=== PATIENT | male | born 1960 | race Caucasian/White ===

== ENCOUNTER 2021-02-08 13:10 | Emergency (ER) | payer OTHER, SELFPAY ==
--- NOTE | 2021-02-08 | ECG_ITS ---
Test Reason : DIZZINESS Blood Pressure : / mmHG Vent. Rate : 085 BPM Atrial Rate : 085 BPM P-R Int : 200 ms QRS Dur : 138 ms QT Int : 404 ms P-R-T Axes : 036 -75 005 degrees QTc Int : 480 ms Normal sinus rhythm Left anterior fascicular block Right bundle branch block Inferior infarct (cited on or before 03-JAN-2010) Anterolateral infarct (cited on or before 15-MAY-2018) Abnormal ECG When compared with ECG of 06-NOV-2019 15:34, No significant changes seen Referred By: Generic ED Physician Electronically Signed By:LAM TOVAR MD
--- NOTE | ~2021-02-08 | CT_ITS ---
EXAMINATION: CT ANGIOGRAM NECK WITH CONTRAST CT ANGIOGRAM BRAIN WITH CONTRAST CLINICAL INFORMATION: Headache. Hears swishing with movement. COMPARISON: Head CT 05/10/2007. TECHNIQUE: Test bolus sequences followed by intravenous administration 100 mL of Omnipaque 350. Helical imaging was performed in the axial plane from the thoracic inlet to the skull vertex. Delayed postcontrast imaging of the head was also performed. The data was processed at the staff technologist workstation for generation of MIP sequences. Angled MIPs and volume rendered reformatted images were also generated at an offline 3D workstation. Stenoses are assessed in accordance with NASCET criteria unless otherwise indicated. This CT examination was performed using dose optimization techniques as appropriate, variously including the following: *Automated exposure control *Adjustment of mA and/or kV according to patient size (this includes techniques or standardized protocols for targeted exams where dose is matched to indication/reason for exam; i.e. extremities or head) *Use of iterative reconstruction technique DLP: 2600 mGy-cm FINDINGS: Head CT: There is no intracranial hemorrhage, large acute infarction, or mass lesion. The ventricles are normal in size and configuration without evidence of hydrocephalus. No abnormal enhancement is seen. There is mild paranasal sinus mucosal thickening. Bilateral mastoids and middle ear cavities are clear. No vascular mass identified. No evidence of carotid or jugular dehiscence. Neck CTA: The aortic arch and great vessels are patent. There is direct origin of the left vertebral artery. The bilateral common and internal carotid arteries are patent. No carotid bifurcation stenosis is seen. Both vertebral arteries are patent with the right side being mildly dominant. Head CTA: The intradural vertebral arteries and basilar artery are patent. The mat inspector are patent. Intracranial ICAs, ACAs, and MCAs are patent. No aneurysm is seen. No vascular malformation is seen. The dural venous sinuses appear normally opacified. No abnormal enhancement is seen within the orbits. Non-vascular findings: The cervical soft tissues appear normal. Significant emphysema is noted in the upper lungs. Multilevel degenerative changes are seen within the spine. CT/CT angio head neck IMPRESSION: CT head: No intracranial hemorrhage or large acute infarction. No abnormal enhancement identified. No evidence of vascular malformation. CTA neck: No stenosis in the major arteries of the neck. CTA head: No large vessel occlusion or significant stenosis within the intracranial circulation.
[2021-02-08 13:25] VITALS: BP 133/94; PULSE 97; RESP 18; TEMP 36.8; O2SAT 95; BMI 29.5
[2021-02-08 14:28] VITALS: PULSE 80; RESP 5; TEMP 36.7
[2021-02-08 14:29] VITALS: BP 145/95; O2SAT 96
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
[2021-02-08 15:12] LABS: MANUAL DIFF FLAG NO
[2021-02-08 15:13] VITALS: BP 135/82; PULSE 83; RESP 14; TEMP 36.7; O2SAT 95
[2021-02-08 15:14] LABS: Basophils Absolute Auto 0.1 X10*3/uL (0.0-0.2); Eosinophils Absolute Auto 0.2 X10*3/uL (0.0-0.4); Eosinophils Percent Auto 2.5 % (0-4); Hematocrit 48.3 % (42.0-52.0); Hemoglobin 16.4 g/dl (14.0-18.0); Imm Gran Abs Auto 0.01 X10*3/uL (0.00-0.03); Imm Gran Pct Auto 0.2 % (0.0-0.4); Lymphocytes Absolute Auto 1.5 X10*3/uL (1.2-4.9); Lymphocytes Percent Auto 24.8 % (20-40); Mean Corpuscular Hemoglobin 30.7 pg (27.0-33.0); Mean Corpuscular Volume 90.4 fL (80.0-98.0); Mean Platelet Volume 9.3 fL (9.4-12.4); Monocytes Absolute Auto 0.5 X10*3/uL (0.1-1.2); Monocytes Percent Auto 8.1 % (2-11); Neutrophils Absolute Auto 3.8 x10*3/uL (2.0-8.3); Neutrophils Percent Auto 63.4 % (45-73); Platelet Count 187 X10*3/uL (160-400); Red Blood Count 5.34 X10*6/uL (4.60-5.80); Red Cell Distribution Width 13.3 % (11.0-16.0); White Blood Count 5.9 X10*3/uL (4.8-10.8)
[2021-02-08] MEDS: Ketorolac Tromethamine 15 MG/ML VIAL IVPUSH (15:15)
[2021-02-08] MEDS: Prochlorperazine Edisylate 10 MG/2 ML VIAL IVPUSH (15:16)
[2021-02-08 15:30] LABS: Alanine Aminotransferase 27 U/L (0-40); Albumin Level 4.1 g/dL (3.5-5.0); Alkaline Phosphatase 85 U/L (39-117); Anion Gap 14 (12-20); Aspartate Amino Transferase 22 U/L (5-37); Bilirubin Total 0.6 mg/dL (0.0-1.0); Blood Urea Nitrogen 15 mg/dL (9-16); Calcium 8.8 mg/dL (8.4-10.2); Carbon Dioxide 27 mmol/L (22-29); Chloride 102 mmol/L (96-108); Creatinine Clr Calc Pharmacy 92.3; Estimated Glomerular Filt Rate > 60; Glucose Random 89 mg/dL (60-115); Potassium 3.9 mmol/L (3.3-5.1); Sodium 139 mmol/L (135-145); Total Protein 6.5 g/dL (6.5-8.0)
== END 2021-02-08 16:57 | disposition home or self-care (01) ==
PROVIDERS: Emergency Provider Emergency Medicine; PCP Internal Medicine
DX: R51.9 Headache, unspecified (principal); J44.9 Chronic obstructive pulmonary disease, unspecified
CPT/HCPCS: 36415; 70496; 70498; 80053; 85025; 93005; 96374; 96375; 99284; 99285; J1885

== ENCOUNTER → 2021-08-28 14:49 | Outpatient (BNVA) | payer OTHER, SELFPAY | PROVIDERS: PCP Internal Medicine; Visit Provider Urology | DX: R39.14 Feeling of incomplete bladder emptying (principal); N32.0 Bladder-neck obstruction; N20.0 Calculus of kidney | CPT/HCPCS: 99212 ==

== ENCOUNTER 2023-08-06 11:18 | Outpatient (AMB) | payer OTHER, SELFPAY ==
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
[2023-08-06 12:02] VITALS: BP 118/80; PULSE 93; RESP 16; TEMP 36.9; O2SAT 94; BMI 32.1
== END 2023-08-06 12:47 | disposition home or self-care (01) ==
PROVIDERS: PCP Internal Medicine; Visit Provider Internal Medicine
DX: J44.9 Chronic obstructive pulmonary disease, unspecified (principal); M19.90 Unspecified osteoarthritis, unspecified site; F33.41 Major depressive disorder, recurrent, in partial remission
CPT/HCPCS: 99214; G2211

== ENCOUNTER 2023-10-02 14:05 | Outpatient (AMB) | payer OTHER, SELFPAY ==
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
== END 2023-10-02 14:50 | disposition home or self-care (01) ==
PROVIDERS: PCP Internal Medicine; Visit Provider Urology
DX: R39.14 Feeling of incomplete bladder emptying (principal); N32.0 Bladder-neck obstruction; N20.0 Calculus of kidney
CPT/HCPCS: 99214

== ENCOUNTER → 2023-10-02 14:05 | Outpatient (BNVA) | payer OTHER, SELFPAY | PROVIDERS: PCP Internal Medicine; Visit Provider Urology | DX: N20.0 Calculus of kidney (principal); R39.14 Feeling of incomplete bladder emptying; N32.0 Bladder-neck obstruction | CPT/HCPCS: 51798; 99212 ==

== ENCOUNTER 2023-10-12 13:53 | Outpatient (REF) | payer OTHER, SELFPAY ==
--- NOTE | ~2023-10-12 | US_ITS ---
EXAMINATION: US RETROPERITONEAL LIMITED (RENAL ONLY) CLINICAL INFORMATION: Calculus of kidney. COMPARISON: CT abdomen and pelvis 04/05/2019. Renal ultrasound 02/22/2019. Ultrasound abdomen complete 06/24/2018. X-ray KUB 09/26/2015 and 08/01/2015. TECHNIQUE: Real-time imaging of the kidneys. FINDINGS: RIGHT KIDNEY: 12.7 x 5.1 x 5.5 cm (SAG x AP x TRV). The kidney is normal in size, contour, and echogenicity. Renal cortical thickness is normal. No calculi or focal parenchymal lesions. No hydronephrosis. LEFT KIDNEY: 11.9 x 5.5 x 4.4 cm (SAG x AP x TRV). The kidney is normal in size, contour, and echogenicity. Renal cortical thickness is normal. No focal parenchymal lesions or hydronephrosis. At the interpolar aspect, a 3 mm nonobstructing calculus is seen. At the lower pole, a 5 mm nonobstructing calculus is seen. There is scant perinephric fluid. US/US renal BI IMPRESSION: There are nonobstructing left renal calculi. No right renal calculus is seen. No hydronephrosis is noted bilaterally.
== END 2023-10-12 13:54 | disposition home or self-care (01) ==
LOC: HO.US 13:53
PROVIDERS: PCP Internal Medicine; Visit Provider Urology
DX: N20.0 Calculus of kidney (principal)
CPT/HCPCS: 76775

== ENCOUNTER 2023-11-02 11:17 | Outpatient (AMB) | payer OTHER, SELFPAY ==
[2023-11-02 11:33] VITALS: BP 120/70; PULSE 66
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
== END 2023-11-02 12:11 | disposition home or self-care (01) ==
PROVIDERS: PCP Internal Medicine; Visit Provider Internal Medicine
DX: G89.4 Chronic pain syndrome (principal); M51.36 Other intervertebral disc degeneration, lumbar region; M81.0 Age-related osteoporosis without current pathological fracture; N40.1 Benign prostatic hyperplasia with lower urinary tract symptoms
CPT/HCPCS: 99214

== ENCOUNTER 2023-12-02 14:03 | Outpatient (AMB) | payer OTHER, SELFPAY ==
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
== END 2023-12-02 15:00 | disposition home or self-care (01) ==
PROVIDERS: PCP Internal Medicine; Visit Provider Urology
DX: N20.0 Calculus of kidney (principal); N32.0 Bladder-neck obstruction; R39.14 Feeling of incomplete bladder emptying; Z13.9 Encounter for screening, unspecified
CPT/HCPCS: 52000

== ENCOUNTER → 2023-12-02 14:03 | Outpatient (BNVA) | payer OTHER, SELFPAY | PROVIDERS: PCP Internal Medicine; Visit Provider Urology | DX: R39.14 Feeling of incomplete bladder emptying (principal); N32.0 Bladder-neck obstruction; N20.0 Calculus of kidney | CPT/HCPCS: 52000; 81003 ==

== ENCOUNTER 2024-02-15 14:02 | Outpatient (AMB) | payer OTHER, SELFPAY ==
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
[2024-02-15 14:30] VITALS: BP 114/80; PULSE 104; O2SAT 93; BMI 30.6
== END 2024-02-15 15:05 | disposition home or self-care (01) ==
PROVIDERS: PCP Internal Medicine; Visit Provider Internal Medicine
DX: M19.90 Unspecified osteoarthritis, unspecified site (principal); J44.9 Chronic obstructive pulmonary disease, unspecified; F33.41 Major depressive disorder, recurrent, in partial remission

== ENCOUNTER → 2024-02-15 14:02 | Outpatient (BNVA) | payer OTHER, SELFPAY | PROVIDERS: PCP Internal Medicine; Visit Provider Internal Medicine | DX: M19.90 Unspecified osteoarthritis, unspecified site (principal); J44.9 Chronic obstructive pulmonary disease, unspecified; F33.41 Major depressive disorder, recurrent, in partial remission; F41.9 Anxiety disorder, unspecified; G89.29 Other chronic pain; R41.3 Other amnesia; M81.0 Age-related osteoporosis without current pathological fracture | CPT/HCPCS: 96127; 99212 ==

== ENCOUNTER 2024-02-15 15:16 | Outpatient (REF) | payer OTHER, SELFPAY ==
[2024-02-15 17:23] LABS: MANUAL DIFF FLAG NO
[2024-02-15 17:35] LABS: Basophils Absolute Auto 0.1 X10*3/uL (0.0-0.2); Basophils Percent Auto 1.4 % (0-2); Eosinophils Absolute Auto 0.3 X10*3/uL (0.0-0.4); Eosinophils Percent Auto 4.7 % (0-4); Hematocrit 51.4 % (42.0-52.0); Hemoglobin 17.5 g/dl (14.0-18.0); Imm Gran Abs Auto 0.01 X10*3/uL (0.00-0.03); Imm Gran Pct Auto 0.2 % (0.0-0.4); Lymphocytes Absolute Auto 1.7 X10*3/uL (1.2-4.9); Lymphocytes Percent Auto 25.9 % (20-40); Mean Corpuscular Hemoglobin 30.5 pg (27.0-33.0); Mean Corpuscular Volume 89.7 fL (80.0-98.0); Monocytes Absolute Auto 0.5 X10*3/uL (0.1-1.2); Monocytes Percent Auto 8.2 % (2-11); Neutrophils Absolute Auto 3.9 x10*3/uL (2.0-8.3); Neutrophils Percent Auto 59.6 % (45-73); Platelet Count 207 X10*3/uL (160-400); Red Blood Count 5.73 X10*6/uL (4.60-5.80); Red Cell Distribution Width 13.1 % (11.0-16.0); White Blood Count 6.6 X10*3/uL (4.8-10.8)
[2024-02-15 17:54] LABS: Alanine Aminotransferase 25 U/L (0-40); Albumin Level 4.5 g/dL (3.5-5.0); Alkaline Phosphatase 84 U/L (39-117); Anion Gap 11 (12-20); Aspartate Amino Transferase 26 U/L (5-37); Bilirubin Total 0.6 mg/dL (0.0-1.0); Blood Urea Nitrogen 15 mg/dL (9-16); Calcium 9.7 mg/dL (8.4-10.2); Carbon Dioxide 30 mmol/L (22-29); Chloride 104 mmol/L (96-108); Estimated Glomerular Filt Rate > 60; Glucose Random 94 mg/dL (60-115); Sodium 141 mmol/L (135-145); Total Protein 7.3 g/dL (6.5-8.0)
[2024-02-15 18:04] LABS: TSH reflex Free T4 2.56 uIU/mL (0.32-4.0)
[2024-02-15 18:16] LABS: Folate 14.1 ng/mL (> or = 4.0); Vitamin B12 473 pg/mL (200-900)
[2024-02-16 08:54] LABS: Lyme Abs Screen <0.90 index
== END 2024-02-15 15:17 | disposition home or self-care (01) ==
LOC: HO.WFDLDS 15:16
PROVIDERS: Visit Provider Internal Medicine
DX: R41.3 Other amnesia (principal)
CPT/HCPCS: 36415; 80053; 82607; 82746; 84443; 85025; 86617; 86618

== ENCOUNTER 2024-06-13 15:25 | Outpatient (AMB) | payer OTHER, SELFPAY ==
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
== END 2024-06-13 15:33 | disposition home or self-care (01) ==
LOC: HO.HMCFM 15:25
PROVIDERS: PCP Internal Medicine; Visit Provider Internal Medicine
DX: F33.41 Major depressive disorder, recurrent, in partial remission (principal); M48.00 Spinal stenosis, site unspecified

== ENCOUNTER 2024-08-29 14:22 | Outpatient (AMB) | payer OTHER, SELFPAY ==
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
[2024-08-29 14:34] VITALS: BP 102/62; PULSE 102; TEMP 36.2; O2SAT 94; BMI 29.0
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
== END 2024-08-29 15:17 | disposition home or self-care (01) ==
LOC: HO.HMCFM 14:23
PROVIDERS: PCP Internal Medicine; Visit Provider Physician Assistant Medical
DX: M79.671 Pain in right foot (principal); M79.672 Pain in left foot; Z13.6 Encounter for screening for cardiovascular disorders; Z00.00 Encounter for general adult medical examination without abnormal findings; F41.8 Other specified anxiety disorders; M54.9 Dorsalgia, unspecified; G89.29 Other chronic pain

== ENCOUNTER → 2024-08-29 14:22 | Outpatient (BNVA) | payer OTHER, SELFPAY | PROVIDERS: PCP Internal Medicine; Visit Provider Physician Assistant Medical | DX: Z00.00 Encounter for general adult medical examination without abnormal findings (principal); G89.29 Other chronic pain; N40.0 Benign prostatic hyperplasia without lower urinary tract symptoms; M48.00 Spinal stenosis, site unspecified; M19.90 Unspecified osteoarthritis, unspecified site; M79.671 Pain in right foot; M79.672 Pain in left foot; M54.9 Dorsalgia, unspecified; F41.8 Other specified anxiety disorders; E78.5 Hyperlipidemia, unspecified | CPT/HCPCS: 96127 ==

== ENCOUNTER 2024-10-10 13:04 | Outpatient (REF) | payer OTHER, SELFPAY ==
--- NOTE | ~2024-10-10 | XR_ITS ---
EXAMINATION: XR FOOT 3 OR MORE VIEWS BILATERAL HISTORY: M79.671 - Pain in right foot COMPARISON: There are no prior studies available for comparison. FINDINGS: Six views of the bilateral feet are submitted. Osseous mineralization is normal. There is no fracture or dislocation. On the right, there is mild degenerative change of the 1st MTP joint with joint space narrowing and subchondral cyst formation. The remaining joint spaces are maintained. The soft tissues are unremarkable. XR/XR Foot Daneil 3V IMPRESSION: Mild degenerative change of the 1st MTP joint of the right foot. Electronically signed by: Samir Montalvo MD 10/10/2024 01:23 PM EDT
--- OUTSIDE RECORDS SUMMARY | 2024-10-10 14:04 | XMS_ITS | Clinical Summary ---
Author Organization [facility] Address [address] [place] [address] Care Team Providers Care Aircraft Engine Dismantler Name Role Phone Kenya Shine MD Primary Care Provider [phone] Surgical History Surgery Date Site/Laterality Comments COLONOSCOPY 02/26/11 PROCEDURE: HISTORICAL COLONOSCOPY; COMMENT: tics; repeat in ten yrs CYSTOSCOPY PROCEDURE: [place] CYSTOURETHROSCOPY; COMMENT: Kidney stone Medical History Medical [...] Relation Name Comments Coronary artery disease Father richard west angina at age 60 Relation Name [...] COVID-19 Vaccine ( season) 2023 Influenza Vaccine (#1) 2024 9, 12/22/2017, 11/26/2017, Additional history exists HIB Vaccines [...] PM EDT Narrative 12/12/2021 5:51 PM EDT [facility] Diagnostic Imaging Department [address] [place] [address] Patient: ADAM BAJWA./Age/Sex: 1960 - 61 - M Unit#: [id number] Location/Status: SPDICAS/REG CLI Mnemonic/Ordering Site: [facility] Ordering Physician: ARTUR TORRES MD CT [...] Category 2: Recommend LDCT in 12 months. 04449/G0297 G9637 G9557 G9551 Dictating Physician: DANNY MORRISON MD Electronically Signed by: DANNY MORRISON MD Dic Date/Time: 12/12/211746 Sign date/Time: 12/12/211750 Procedure Note Danny Morrison MD - 03/19/2022 [facility] Diagnostic Imaging Department [address] [place] [address] Patient: ADAM BAJWA/Age/Sex: 1960 - 61 - M Unit#: [id number] Location/Status: SPDICATLS/REG CLI Mnemonic/Ordering Site: [facility] Ordering Physician: ARTUR TORRES MD CT Lung Screening Low Dose - 12/12/21 - 1654 History: 45 pack-year smoker screening for lung malignancy. Comparison: 12/10/2020 Findings: Noncontrast low dose chest CT (LDCT) was performed per lungcancer CT screening protocol on a [employer] multidetector scanner. The CT scanner utilizedlow- dose [...] Category 2: Recommend LDCT in 12 months. 16663/G0297 G9637 G9557 G9551 Dictating Physician: DANNY MORRISON MD Electronically Signed by: DANNY MORRISON MD Dic Date/Time: 12/12/211746 Sign date/Time: 12/12/211750 Artur Torres MD IMG CT PROCEDURES Final Result from Last 3 Months or Most Recently Relevant to Health Maintenance Care Teams Aircraft Engine Dismantler Relationship Specialty Start Date End Date Kenya Shine MD PCP - General 02/20/15
== END 2024-10-10 13:05 | disposition home or self-care (01) ==
LOC: HO.XRAY 13:04
PROVIDERS: PCP Internal Medicine; Visit Provider Physician Assistant Medical
DX: M79.671 Pain in right foot (principal); M79.672 Pain in left foot
CPT/HCPCS: 73630

== ENCOUNTER → 2024-10-10 13:06 | Outpatient (BNV) | payer OTHER, SELFPAY | PROVIDERS: PCP Internal Medicine; Visit Provider Radiology Diagnostic Radiology | DX: M19.071 Primary osteoarthritis, right ankle and foot (principal) | CPT/HCPCS: 73630 ==

== ENCOUNTER 2024-10-11 16:13 | Outpatient (AMB) | payer OTHER, SELFPAY ==
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
[2024-10-11 16:26] VITALS: BP 112/70; PULSE 93; RESP 14; O2SAT 92; BMI 28.7
--- OUTSIDE RECORDS SUMMARY | 2024-10-11 16:45 | XMS_ITS | Clinical Summary ---
Author Organization [facility] Address [address] [place] [address] Care Team Providers Care Stick Inserter Name Role Phone Kenya Shine MD Primary Care Provider [phone] Surgical History Surgery Date Site/Laterality Comments COLONOSCOPY 02/26/11 PROCEDURE: HISTORICAL COLONOSCOPY; COMMENT: tics; repeat in ten yrs CYSTOSCOPY PROCEDURE: [place] CYSTOURETHROSCOPY; COMMENT: Kidney stone Medical History Medical [...] PM EDT Narrative 12/12/2021 5:51 PM EDT [facility] Diagnostic Imaging Department [address] [place] [address] Patient: ADAM BAJWA./Age/Sex: 1960 - 61 - M Unit#: [id number] Location/Status: SPDICAS/REG CLI Mnemonic/Ordering Site: [facility] Ordering Physician: ARTUR TORRES MD CT Lung [...] Category 2: Recommend LDCT in 12 months. 82388/G0297 G9637 G9557 G9551 Dictating Physician: DANNY MORRISON MD Electronically Signed by: DANNY MORRISON MD Dic Date/Time: 12/12/211746 Sign date/Time: 12/12/211750 Procedure Note Danny Morrison MD - 03/19/2022 [facility] Diagnostic Imaging Department [address] [place] [address] Patient: ADAM BAJWA/Age/Sex: 1960 - 61 - M Unit#: [id number] Location/Status: SPDICATLS/REG CLI Mnemonic/Ordering Site: [facility] Ordering Physician: ARTUR TORRES MD CT Lung Screening Low Dose - 12/12/21 - 1654 History: 45 pack-year smoker screening for lung malignancy. Comparison: 12/10/2020 Findings: Noncontrast low dose chest CT (LDCT) was performed per lungcancer CT screening protocol on a [employer] multidetector scanner. The CT scanner utilizedlow- dose [...] Category 2: Recommend LDCT in 12 months. 00360/G0297 G9637 G9557 G9551 Dictating Physician: DANNY MORRIOSN MD Electronically Signed by: DANNY MORRISON MD Dic Date/Time: 12/12/211746 Sign date/Time: 12/12/211750 Artur Torres MD IMG CT PROCEDURES Final Result from Last 3 Months or Most Recently Relevant to Health Maintenance Care Teams Stick Inserter Relationship Specialty Start Date End Date Kenya Shine MD PCP - General 02/20/15
== END 2024-10-11 16:52 | disposition home or self-care (01) ==
LOC: HO.HMCFM 16:14
PROVIDERS: PCP Internal Medicine; Visit Provider Internal Medicine
DX: J44.9 Chronic obstructive pulmonary disease, unspecified (principal); F33.41 Major depressive disorder, recurrent, in partial remission; M54.42 Lumbago with sciatica, left side; M54.41 Lumbago with sciatica, right side; G89.29 Other chronic pain

== ENCOUNTER → 2024-10-11 16:13 | Outpatient (BNVA) | payer OTHER, SELFPAY | PROVIDERS: PCP Internal Medicine; Visit Provider Internal Medicine | DX: F33.41 Major depressive disorder, recurrent, in partial remission (principal); G89.29 Other chronic pain; M54.41 Lumbago with sciatica, right side; M54.42 Lumbago with sciatica, left side; J44.9 Chronic obstructive pulmonary disease, unspecified | CPT/HCPCS: 99212 ==

== ENCOUNTER 2024-12-06 14:09 | Outpatient (AMB) | payer OTHER, SELFPAY ==
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
[2024-12-06 14:22] VITALS: BP 114/70; PULSE 81; RESP 14; O2SAT 95; BMI 29.1
--- OUTSIDE RECORDS SUMMARY | 2024-12-06 16:47 | XMS_ITS | Clinical Summary ---
Author Organization [facility] Address [address] [place] [address] Care Team Providers Care Web Development Intern Name Role Phone Kenya Shine MD Primary Care Provider [phone] Surgical History Surgery Date Site/Laterality Comments COLONOSCOPY 02/26/11 PROCEDURE: HISTORICAL COLONOSCOPY; COMMENT: tics; repeat in ten yrs CYSTOSCOPY PROCEDURE: [place] CYSTOURETHROSCOPY; COMMENT: Kidney stone Medical History Medical [...] Panel) 03/08/2022 Colorectal Cancer Screening: Colonoscopy 03/08/2022 Hepatitis C Screening 03/08/2022 Social Influencers of Health Screening 03/08/2022 Hypertension/CHF/CAD Annual BMP Blood Test 03/15/2022 Lung Cancer Screening (Low Dose CT) 12/12/2022 12/12/2021, 12/10/2020 Falls Risk Assessment 2023 Depression Screening 03/30/2024 COVID-19 Vaccine ( season) 2024 Influenza Vaccine (#1) 2024 9, 12/22/2017, 11/26/2017, [...] PM EDT Narrative 12/12/2021 5:[address] [facility] Diagnostic Imaging Department [address] [place] [address] Patient: ADAM BAJWA./Age/Sex: 1960 - 61 - M Unit#: [id number] Location/Status: SPDICAS/REG CLI Mnemonic/Ordering Site: [facility] Ordering Physician: ARTUR TORRES MD CT Lung [...] Category 2: Recommend LDCT in 12 months. 56762/G0297 G9637 G9557 G9551 Dictating Physician: DANNY MORRISON MD Electronically Signed by: DANNY MORRISON MD Dic Date/Time: 12/12/211746 Sign date/Time: 12/12/211750 Procedure Note Danny Morrison MD - 03/19/2022 [facility] Diagnostic Imaging Department [address] [place] [address] Patient: ADAM BAJWA/Age/Sex: 1960 - 61 - M Unit#: [id number] Location/Status: SPDICATLS/REG CLI Mnemonic/[facility] Ordering Physician: ARTUR TORRES MD CT Lung Screening Low Dose - 12/12/21 - 1654 History: 45 pack-year smoker screening for lung malignancy. Comparison: 12/10/2020 Findings: Noncontrast low dose chest CT (LDCT) was performed per lungcancer CT screening protocol on a [employer] multidetector scanner. The CT scanner utilizedlow- dose [...] Category 2: Recommend LDCT in 12 months. 20107/G0297 G9637 G9557 G9551 Dictating Physician: DANNY MORRISON MD Electronically Signed by: DANNY MORRISON MD Dic Date/Time: 12/12/211746 Sign date/Time: 12/12/211750 Artur Torres MD IMG CT PROCEDURES Final Result from Last 3 Months or Most Recently Relevant to Health Maintenance Care Teams Web Development Intern Relationship Specialty Start Date End Date Kenya Shine MD PCP - General 02/20/15
== END 2024-12-06 14:37 | disposition home or self-care (01) ==
LOC: HO.HMCFM 14:10
PROVIDERS: PCP Internal Medicine; Visit Provider Internal Medicine
DX: F33.41 Major depressive disorder, recurrent, in partial remission (principal); J44.9 Chronic obstructive pulmonary disease, unspecified

== ENCOUNTER → 2024-12-06 14:09 | Outpatient (BNVA) | payer OTHER, SELFPAY | PROVIDERS: PCP Internal Medicine; Visit Provider Internal Medicine | DX: F33.41 Major depressive disorder, recurrent, in partial remission (principal); J44.9 Chronic obstructive pulmonary disease, unspecified; M81.0 Age-related osteoporosis without current pathological fracture; N40.0 Benign prostatic hyperplasia without lower urinary tract symptoms; G89.29 Other chronic pain; M19.079 Primary osteoarthritis, unspecified ankle and foot; Z87.891 Personal history of nicotine dependence; Z79.891 Long term (current) use of opiate analgesic; Z79.899 Other long term (current) drug therapy | CPT/HCPCS: 99212 ==

== ENCOUNTER 2025-03-22 09:47 | Outpatient (AMB) | payer OTHER, SELFPAY ==
--- OUTSIDE RECORDS SUMMARY | 2025-03-22 09:53 | XMS_ITS | Clinical Summary ---
Author Organization [facility] Address [address] [place] [address] Care Team Providers Care Engineer Process Name Role Phone Kenya Shine MD Primary Care Provider [phone] Surgical History Surgery Date Site/Laterality Comments COLONOSCOPY 02/26/11 PROCEDURE: HISTORICAL COLONOSCOPY; COMMENT: tics; repeat in ten yrs CYSTOSCOPY PROCEDURE: [place] CYSTOURETHROSCOPY; COMMENT: Kidney stone Medical History Medical [...] Name Status Comments Brother (Age 29) auto acci dent Daughter Alive healthy Father (Age 74) etoh [...] on file Sexual Orientation Not on file Plan of Treatment Health Maintenance Due Date Last Done Comments Colorectal Cancer Screening: Colonoscopy 1960 RSV Immunization Adult Patients (1 - Risk 50-74 years 1-dose series) 2008 Pneumococcal Vaccine: 50+ Years (2 of 2 - PCV) 10/11/2011 10/10/2010 Zoster Vaccines (2 of 2) 11/26/2017 10/01/2017 DTaP,Tdap,and Td Vaccines (2 - Td or Tdap) 06/07/2019 06/06/2009 Abdominal Aortic Aneurysm (AAA) Screen 03/08/2022 Cholesterol Screening (Lipid Panel) 03/08/2022 Hepatitis C Screening 03/08/2022 Social Influencers [...] PM EDT Narrative 12/12/2021 5:51 PM EDT [facility] Diagnostic Imaging Department [address] [place] [address] Patient: ADAM BAJWA./Age/Sex: 1960 - 61 - M Unit#: [id number] Location/Status: SPDICATLS/REG CLI Mnemonic/Ordering Site: [facility] Ordering Physician: ARTUR [...] Category 2: Recommend LDCT in 12 months. 68650/G0297 G9637 G9557 G9551 Dictating Physician: DANNY MORRISON MD Electronically Signed by: DANNY MORRISON MD Dic Date/Time: 12/12/211746 Sign date/Time: 12/12/211750 Procedure Note Danny Morrison MD - 03/19/2022 [facility] Diagnostic Imaging Department [address] [place] [address] Patient: ADAM BAJWA/Age/Sex: 1960 - 61 - M Unit#: [id number] Location/Status: SPDICATLS/REG CLI Mnemonic/Ordering Site: [facility] Ordering Physician: ARTUR TORRES MD CT Lung Screening Low Dose - 12/12/21 - 1654 History: 45 pack-year smoker screening for lung malignancy. Comparison: 12/10/2020 Findings: Noncontrast low dose chest CT (LDCT) was performed per lungcancer CT screening protocol on a [employer] multidetector scanner. The CT scanner utilizedlow- dose [...] Category 2: Recommend LDCT in 12 months. 65452/G0297 G9637 G9557 G9551 Dictating Physician: DANNY MORRISON MD Electronically Signed by: DANNY MORRISON MD Dic Date/Time: 12/12/211746 Sign date/Time: 12/12/211750 Artur Torres MD IMG CT PROCEDURES Final Result from Last 3 Months or Most Recently Relevant to Health Maintenance Care Teams Engineer Process Relationship Specialty Start Date End Date Kenya Shine MD PCP - General 02/20/15
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
[2025-03-22 09:57] VITALS: BP 106/68; PULSE 79; RESP 18; TEMP 36.6; O2SAT 96; BMI 29.6
== END 2025-03-22 10:31 | disposition home or self-care (01) ==
LOC: HO.HMCFM 09:47
PROVIDERS: PCP Internal Medicine; Visit Provider Internal Medicine
DX: J44.9 Chronic obstructive pulmonary disease, unspecified (principal); R41.3 Other amnesia; M48.00 Spinal stenosis, site unspecified; M54.42 Lumbago with sciatica, left side; M54.41 Lumbago with sciatica, right side; G89.29 Other chronic pain; F33.41 Major depressive disorder, recurrent, in partial remission

== ENCOUNTER → 2025-03-22 09:47 | Outpatient (BNVA) | payer OTHER, SELFPAY | PROVIDERS: PCP Internal Medicine; Visit Provider Internal Medicine | DX: J44.9 Chronic obstructive pulmonary disease, unspecified (principal); R41.3 Other amnesia; M48.00 Spinal stenosis, site unspecified; M54.41 Lumbago with sciatica, right side; M54.42 Lumbago with sciatica, left side; G89.29 Other chronic pain; F33.41 Major depressive disorder, recurrent, in partial remission | CPT/HCPCS: 99212 ==